=== PATIENT | male | born 1965 | race Hispanic/Latino ===

== ENCOUNTER 2018-04-10 09:47 | Emergency (ER) | payer SELFPAY ==
[2018-04-10 09:47] VITALS: BMI 24.9
--- NOTE | 2018-04-10 10:07 | ED PDOC ---
Arrival/HPI - General Chief Complaint: Alcohol Ingestion Time Seen by Provider: 04/10/18 10:01 Historian: Patient, EMS EM Caveat: Intoxicated - History of Present Illness Narrative History of Present Illness (Text): 04/10/18 10:03 52 y/o male, psychiatric history including alcohol and drug abuse, penicillin allergy, +etoh on breath, limited HPI can be obtained from the patient, biba for etoh intoxication in public. Pt. is here in the ER, admits drinking, sitting on the street, milk pickup driver by the ambulance, stated that he feels fine and doesn't need to be here, no fall or trauma, no neck or back pain, no back or chest pain, no extremity pain, walking and moving all extremities, verbally cursing and fighting the staff to leave the ER, no homicidal or suicidal ideation, no auditory or visual hallucinations. Past Medical History - Provider Review Nursing Documentation Reviewed: Yes - Infectious Disease Hx of Infectious Diseases: None - Tetanus Immunization Tetanus Immunization: Unknown - Past Medical History Past Medical History: No Previous - Cardiac Hx Cardiac Disorders: No - Pulmonary Hx Respiratory Disorders: No - Neurological Hx Neurological Disorder: No - HEENT Hx HEENT Disorder: No - Renal Hx Renal Disorder: No - Endocrine/Metabolic Hx Endocrine Disorders: No - Hematological/Oncological Hx Blood Transfusions: No Hx Blood Transfusion Reaction: No - Integumentary Hx Dermatological Disorder: No - Musculoskeletal/Rheumatological Hx Musculoskeletal Disorders: No Hx Falls: No - Gastrointestinal Hx Gastrointestinal Disorders: Yes (AP/CHOLECYSECTOMY/RIGHT INGINUAL HERNIA) - Genitourinary/Gynecological Hx Genitourinary Disorders: No - Psychiatric Hx Depression: No Hx Emotional Abuse: No Hx Physical Abuse: No Hx Substance Use: No (denies) - Surgical History Hx Appendectomy: Yes Hx Cholecystectomy: Yes - Anesthesia Hx Anesthesia: Yes Hx Anesthesia Reactions: No Hx Malignant Hyperthermia: No - Suicidal Assessment Feels Threatened In Home Enviroment: No Family/Social History - Physician Review Nursing Documentation Reviewed: Yes Family/Social History: Unknown Family HX Smoking Status: Heavy Smoker > 10 Cigarettes Daily Hx Alcohol Use: Yes (denies) Frequency of alcohol use: Socially Hx Substance Use: No (denies) Allergies/Home Meds Allergies/Adverse Reactions: Allergies Penicillins Adverse Reaction (Verified 04/10/18 09:50) ANAPHYLAXIS Home Medications: Home Meds Medication Instructions Recorded Confirmed No Known Home Med 07/01/16 04/10/18 Review of Systems - Review of Systems Systems not reviewed;Unavailable: Intoxicated Constitutional: absent: Fatigue, Fevers Respiratory: absent: SOB, Cough Cardiovascular: absent: Chest Pain Gastrointestinal: absent: Abdominal Pain, Diarrhea, Nausea, Vomiting Musculoskeletal: absent: Arthralgias, Back Pain, Myalgias Skin: absent: Rash, Pruritis Neurological: absent: Headache, Dizziness Psychiatric: absent: Anxiety, Depression, Suicidal Ideation Physical Exam Vital Signs Reviewed: Yes Vital Signs Temp Pulse Resp BP Pulse Ox 04/10/18 17:07 61 18 134/88 98 04/10/18 15:29 98.3 F 64 16 130/86 100 04/10/18 13:41 98.3 F 70 16 109/70 96 04/10/18 13:12 98.3 F 72 18 105/68 97 04/10/18 09:57 98.0 F 99 H 20 157/105 H 96 Temperature: Afebrile Blood Pressure: Hypertensive Pulse: Regular Respiratory Rate: Normal Appearance: Positive for: Well-Appearing, Non-Toxic, Comfortable Pain Distress: None Mental Status: Positive for: Alert and Oriented X 3 - Systems Exam Head: Present: Atraumatic, Normocephalic, Other (no facial bony tenderness, no abrasion or laceration. ). No: Tenderness, Contusion, Swelling, Ecchymosis, Abrasion, Laceration Pupils: Present: PERRL Extroacular Muscles: Present: EOMI Conjunctiva: Present: Normal Ears: Present: NORMAL TM, Normal Canal. No: Erythema Mouth: Present: Moist Mucous Membranes Pharnyx: Present: Normal. No: ERYTHEMA, EXUDATE, TONSILS ENLARGED Nose (External): Present: Atraumatic. No: Abrasion, Contusion, Laceration, Lesions Nose (Internal): Present: Normal Inspection, No Active Bleeding. No: Rhinorrhea , Septal Deviation, Septal Hematoma, Epistaxis Neck: Present: Normal Range of Motion, Trachea Midline. No: MIDLINE TENDERNESS , Paraspinal Tenderness Respiratory/Chest: Present: Clear to Auscultation, Good Air Exchange, Other (no signs of trauma). No: Respiratory Distress, Accessory Muscle Use, Wheezes, Decreased Breath Sounds, Rales, Retracting, Rhonchi, Tachypneic, Tender to Palpation Cardiovascular: Present: Regular Rate and Rhythm, Normal S1, S2. No: Murmurs Abdomen: No: Tenderness, Distention, Peritoneal Signs, Rebound, Guarding Back: Present: Normal Inspection. No: CVA Tenderness, Midline Tenderness, Paraspinal Tenderness, Decubitus Ulcer Upper Extremity: Present: Normal Inspection. No: Cyanosis, Edema Lower Extremity: Present: Normal Inspection, NORMAL PULSES, Normal ROM, Neurovascularly Intact, Capillary Refill < 2 s. No: Edema, CALF TENDERNESS, [place]'s Sign, Tenderness, Swelling, Deformity, Temperature Abnormalties Neurological: Present: GCS=15, CN II-XII Intact, Motor Func Grossly Intact, Memory Normal Skin: Present: Warm, Dry, Normal Color. No: Rashes Psychiatric: Present: Alert, Oriented x 3, Intoxicated Medical Decision Making ED Course and Treatment: 04/10/18 10:08 -Pt. is agitated, threatened to leave, able to communicate, pushing the ER staff and refused to be restraint and after the multiple ER with security's help , ativan and haldol IM ordered. -Finger stick -Pending for the patient to be sobered and reassess 04/10/18 10:26 -Restraint ordered added as prn but would discontinue/remove when he is calm. 04/10/18 10:38 -Pt. is sleeping, restraints removed. 04/10/18 11:13 -Labs are non-significant 04/10/18 16:25 -Pt. is still sleeping, easily arousable, not on restraint, will observed until sobered 04/10/18 19:09 -Pt. is fully awake and alert, completely sobered, walking with normal gait and posture, pleasant and calm, no homicidal or suicidal ideation, no auditory or visual hallucination, apologized about the agitation while he was intoxication earlier. Pt. would like to be discharged which he claimed he had no fall or trauma, no neck/back pain and no headache. He would like to be discharged home. Pt. has no signs of withdrawal. -Discharge home with education on avoid public intoxication, stay hydrated, follow up with your own pmd within 2 days, return to the ER for any new or worsening signs or symptoms. - Lab Interpretations Lab Results: 04/10/18 10:45 04/10/18 10:45 Lab Results 04/10/18 10:57: POC Glucose (mg/dL) 111 H 04/10/18 10:45: WBC 4.1 L, RBC 4.64, Hgb 15.1, Hct 42.2, MCV 90.9, MCH 32.5, MCHC 35.8, RDW 13.5, Plt Count 226, MPV 8.3, Gran % 41.7 L, Lymph % (Auto) 48.4 H, [place] % (Auto) 7.2 H, Eos % (Auto) 1.7, Baso % (Auto) 1.0, Gran # 1.69, Lymph # (Auto) 2.0, [place] # (Auto) 0.3, Eos # (Auto) 0.1, Baso # (Auto) 0.04 04/10/18 10:45: Sodium 141, Potassium 3.6, Chloride 99, Carbon Dioxide 27, Anion Gap 18, BUN 6 L, Creatinine 0.7 L, Est GFR ( Amer) > 60, Est GFR ( Non-Af Amer) > 60, Random Glucose 107, Calcium 7.9 L, Total Bilirubin 0.2, AST 77 H, ALT 75 H, Alkaline Phosphatase 67, Total Creatine Kinase 248 H, CK-MB (CK- 2) 3.5, CK-MB (CK-2) % Cancelled, Total Protein 7.9, Albumin 4.4, Globulin 3.6, Albumin/Globulin Ratio 1.2 - Medication Orders Current Medication Orders: Discontinued Medications Haloperidol Lactate (Haldol) 5 mg IM STAT STA PRN Reason: Protocol Stop: 04/10/18 10:05 Last Admin: 04/10/18 10:10 Dose: 5 mg IM Administration Charges Document 04/10/18 10:10 [email or web address] (Rec: 04/10/18 10:27 [email or web address] [id number]) Charges for Administration # of IM Administrations 1 Multivitamins/Vitamin C 10 ml/Thiamine HCl 100 mg/ Folic Acid 1 mg/ Dextrose 1, 011.2 mls @ 1,000 mls/hr IV .Q1H1M ONE Stop: 04/10/18 11:29 Last Admin: 04/10/18 11:00 Dose: 1,000 mls/hr eMAR Start Stop Document 04/10/18 11:00 OCS (Rec: 04/10/18 13:41 OCS [id number]) Intravenous Solution Start Date 04/10/18 Start Time 11:00 Lorazepam (Ativan) 2 mg IM ONCE ONE PRN Reason: Protocol Stop: 04/10/18 10:05 Last Admin: 04/10/18 10:10 Dose: 2 mg IM Administration Charges Document 04/10/18 10:10 [email or web address] (Rec: 04/10/18 10:26 [email or web address] [id number]) Charges for Administration # of IM Administrations 1 - PA / PRODUCTION GRADER / Resident Statement MD/DO has reviewed & agrees with the documentation as recorded. Disposition/Present on Arrival - Present on Arrival Any Indicators Present on Arrival: No History of DVT/PE: No History of Uncontrolled Diabetes: No Urinary Catheter: No History of Decub. Ulcer: No History Surgical Site Infection Following: None - Disposition Have Diagnosis and Disposition been Completed?: Yes Diagnosis: Alcohol intoxication Disposition: HOME/ ROUTINE Disposition Time: 10:10 Patient Plan: Discharge Patient Problems: Current Active Problems Problem Status Onset Alcohol intoxication Acute Agitation Acute Condition: IMPROVED Additional Instructions: -Discharge home with education on avoid public intoxication, stay hydrated, follow up with your own pmd within 2 days, return to the ER for any new or worsening signs or symptoms. Referrals: Liliya Chin, [Primary Care Provider] - Follow up with primary [facility] [place] - Follow up with primary Forms: WORK NOTE
[2018-04-10] MEDS ORDERED: Multivitamin (MVI) 10 ML, Thiamine 100 MG, Folic Acid 1 MG in Dextrose 5% In Water 1,00... IV ONE (10:29)
[2018-04-10 11:07] LABS: BASO # 0.04 K/mm3 (0.0-2.0); EOS # 0.1 (0.0-0.7); EOS % 1.7 % (1.5-5.0); GRAN # 1.69 (1.4-6.5); GRAN % 41.7 % (50.0-68.0); HEMOGLOBIN 15.1 g/dL (14.0-18.0); LYMPH % 48.4 % (22.0-35.0); MEAN CELL VOLUME 90.9 fl (80.0-105.0); MEAN CORPUSCULAR HEMOGLOBIN 32.5 pg (25.0-35.0); MEAN CORPUSCULAR HGB CONC 35.8 g/dl (31.0-37.0); MEAN PLATELET VOLUME 8.3 fl (7.0-11.0); MONO # 0.3 (0.1-0.6); MONO % 7.2 % (1.0-6.0); RBC 4.64 10^6/uL (3.5-6.1); RED CELL DISTRIBUTION WIDTH 13.5 % (11.5-14.5); WHITE BLOOD COUNT 4.1 10^3/ul (4.5-11.0)
[2018-04-10 11:12] LABS: ALB/GLOB RATIO 1.2 (1.1-1.8); ALBUMIN 4.4 g/dL (3.0-4.8); ALT/SGPT 75 U/L (7-56); AST/SGOT 77 U/L (17-59); BLOOD UREA NITROGEN 6 mg/dL (7-21); CALCIUM 7.9 mg/dL (8.4-10.5); GFR AFRICAN-AMERICAN > 60; GFR NON-AFRICAN AMERICAN > 60
[2018-04-10 11:34] LABS: CK-MB 3.5 ng/mL (0.0-3.6)
[2018-04-10 13:13] VITALS: TEMP 98.3
[2018-04-10 17:08] VITALS: RESP 18; O2SAT 98
[2018-04-10 19:20] VITALS: BP 137/82; PULSE 75
== END 2018-04-10 19:12 | disposition home or self-care (01) ==
LOC: ED 09:47
DX: F10.129 Alcohol abuse with intoxication, unspecified (principal)
CPT/HCPCS: 80053; 82550; 82553; 82948; 85025; 96372; 99284; J1630; J2060; J3411; J7070